=== PATIENT | female | born 1995 | race Caucasian/White ===

== ENCOUNTER 2016-12-28 15:06 | Emergency (ER) | payer SELFPAY ==
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
[2016-12-28] MEDS ORDERED: AZITHROMYCIN 250 MG TABLET PO ONE (19:38)
[2016-12-28] MEDS ORDERED: LEVONORGESTREL 1.5 MG TABLET (1 TAB/ER-USE) PO ONE (19:38)
[2016-12-28] MEDS ORDERED: CEFTRIAXONE INJ 250 MG VIAL IM ONE (19:38)
[2016-12-28] MEDS ORDERED: PROMETHAZINE HCL 25 MG TABLET PO ONE (19:39)
[2016-12-28 20:30] VITALS: BP 122/69
[2016-12-28 20:35] LABS: CHLAM PCR DETECTED (NOT DETECT)
== END 2016-12-28 20:25 | disposition home or self-care (01) ==
LOC: ER 15:06
DX: T76.21XA Adult sexual abuse, suspected, initial encounter (principal); F17.200 Nicotine dependence, unspecified, uncomplicated
CPT/HCPCS: 99285; 96372; 87210; 81025; 87491; 87591; A9270; J0696

== ENCOUNTER 2018-06-16 17:19 | Emergency (ER) | payer OTHER ==
[2018-06-16] MEDS ORDERED: DIPH/PERTUSS(ACELL)/TETANUS VAC/PF 0.5 ML SYR (>=10YO) IM ONE (18:04)
[2018-06-16] MEDS ORDERED: LIDOCAINE 1% INJ-PF (10 MG/ML) 30 ML SDV INJ ONE (18:04)
--- NOTE | 2018-06-16 18:40 | ER Document Report ---
ED Wound - General Chief Complaint: Laceration Stated Complaint: WORK INJ/FINGER INJURY Time Seen by Provider: 06/16/18 17:55 Notes: Patient presents with chief complaint of laceration to her left index finger. Patient reports she cut it on a steak knife at work. Patient unsure if she has a an up-to-date tetanus. There is no active bleeding at this time. TRAVEL OUTSIDE OF THE [place] IN LAST 30 DAYS: No - Related Data Allergies/Adverse Reactions: No Known Allergies Allergy (Verified 06/16/18 17:20) Past Medical History - General Information source: Patient - Social History Smoking Status: Never Smoker Frequency of alcohol use: None Drug Abuse: None Family History: Reviewed & Not Pertinent - Medical History Medical History: Negative Renal/ Medical History: Denies: Hx Peritoneal Dialysis Surgical Hx: Negative - Immunizations Hx Diphtheria, Pertussis, Tetanus Vaccination: Yes Review of Systems - Review of Systems Skin: See HPI -: Yes All other systems reviewed and negative Physical Exam - Vital signs Vitals: Temp Pulse Resp BP Pulse Ox 98.2 F 62 14 130/80 H 99 06/16/18 17:25 06/16/18 17:25 06/16/18 17:25 06/16/18 17:25 06/16/18 17:25 - Notes Notes: PHYSICAL EXAMINATION: GENERAL: Well-appearing, well-nourished and in no acute distress. HEAD: Atraumatic, normocephalic. EYES: Pupils equal round extraocular movements intact, conjunctiva are normal. ENT: Nares patent NECK: Normal range of motion LUNGS: No respiratory distress Musculoskeletal: Normal range of motion NEUROLOGICAL: Normal speech, normal gait. PSYCH: Normal mood, normal affect. SKIN: Warm, Dry, normal turgor, no rashes or lesions noted. 2 cm superficial laceration noted to the left second digit, well approximated with no active bleeding at this time. Normal capillary refill and normal motor and sensation distal to injury. Course - Re-evaluation Re-evalutation: 06/16/18 18:36 Laceration repaired under sterile technique, see procedure note. Patient will be placed on antibiotics and discharged home in stable condition. Tdap updated today in the emergency department. - Vital Signs Vital signs: Temp Pulse Resp BP Pulse Ox 98.2 F 62 14 130/80 H 99 06/16/18 17:25 06/16/18 17:25 06/16/18 17:25 06/16/18 17:25 06/16/18 17:25 Procedures - Laceration/Wound Repair Left second digit Wound length (cm): 2 Wound's Depth, Shape: Superficial Laceration pre-procedure: Sterile PPE donned Anesthetic type: 1% Lidocaine Wound explored: Clean Wound Repaired With: Sutures Suture Size/Type: 5:0, Nylon Number of Sutures: 5 Discharge - Discharge Clinical Impression: Laceration Condition: Stable Disposition: HOME, SELF-CARE Additional Instructions: Laceration Care Your laceration has been sutured to keep the skin edges aligned during healing. The time of suture removal depends on the nature and location of your cut. Please follow the care instructions the doctor has outlined for you and return for further care, according to the schedule you've been given. Keep the wound and dressing clean. Unless you were told otherwise, you may shower daily, blotting the wound dry with a clean, unused towel. At other times, If the dressing gets wet or blood soaked, remove it and blot the wound dry, then reapply a new dressing. Unless you were instructed otherwise, dressings should be changed at least daily. If any signs of infection occur (swelling, redness, increasing tenderness, red streaks, tender lumps in the armpit or groin above the laceration, or fever) , see the doctor immediately. Please return to the emergency department or your primary care provider in 10-12 days for suture removal. Please return earlier if you develop any signs of infection such as increased redness, swelling, foul-smelling drainage or fever. Prescriptions: Cephalexin Monohydrate [Keflex 500 mg Capsule] 500 mg PO Q6H 5 Days #20 capsule
[2018-06-16 19:05] VITALS: BP 130/74
== END 2018-06-16 19:10 | disposition home or self-care (01) ==
LOC: ER 17:19
PROC: 0HQGXZZ Repair Left Hand Skin, External Approach (ICD-10-PCS; principal; 2018-06-16)
DX: S61.211A Laceration without foreign body of left index finger without damage to nail, initial encounter (principal); W26.0XXA Contact with knife, initial encounter; Y99.0 Civilian activity done for income or pay; Z23 Encounter for immunization
CPT/HCPCS: 99283; 90471; 90715; 12001; J3490